=== PATIENT | female | born 1960 ===

== ENCOUNTER 2017-06-29 17:51 | Emergency (ER) | payer BC ==
[2017-06-29 17:52] VITALS: BMI 23.1
--- NOTE | 2017-06-29 20:32 | ED PDOC ---
Lower Extremity Pain/Injury Time Seen by Provider: 06/29/17 18:19 Chief Complaint (Nursing): Lower Extremity Problem/Injury Chief Complaint (Provider): Right calf pain History Per: Patient History/Exam Limitations: no limitations Onset/Duration Of Symptoms: Days, Persistent Current Symptoms Are (Timing): Still Present Additional History Per: Patient Additional Complaint(s): 56yo female, history of hypertension, presents with complaint of atraumatic pain to right zora for the past month. She reports the pain worsens after she walks 1.5 blocks. She denies any associated fever, numbness, shortness of breath , chest pain, rash. Past Medical History Reviewed: Historical Data, Nursing Documentation, Vital Signs - Medical History PMH: HTN, Hypercholesterolemia - Surgical History Surgical History: No Surg Hx - Family History Family History: States: No Known Family Hx - Social History Current smoker - smoking cessation education provided: Yes SMOKER/PACKS PER DAY:: 1 (for 30 years) - Allergies Allergies/Adverse Reactions: Allergies Allergy/AdvReac Type Severity Reaction Status Date / Time acetaminophen [From Tylenol] AdvReac SHORTNESS Verified 08/03/16 08:39 OF BREATH Review of Systems ROS Statement: Except As Marked, All Systems Reviewed And Found Negative Constitutional: Negative for: Fever, Chills Cardiovascular: Negative for: Chest Pain Respiratory: Negative for: Shortness of Breath Musculoskeletal: Positive for: Leg Pain (right calf pain) Skin: Negative for: Rash Neurological: Negative for: Weakness, Numbness Physical Exam - Reviewed Nursing Documentation Reviewed: Yes Vital Signs Reviewed: Yes - Physical Exam Appears: Positive for: Non-toxic Head Exam: Positive for: ATRAUMATIC, NORMAL INSPECTION, NORMOCEPHALIC Skin: Positive for: Warm (bilateral lower extremities warm to touch), Dry. Negative for: Pallor Eye Exam: Positive for: EOMI, PERRL Neck: Positive for: Supple Cardiovascular/Chest: Positive for: Regular Rate, Rhythm Respiratory: Positive for: Normal Breath Sounds. Negative for: Wheezing Pulses-Dorsalis Pedis (L): 2+ Pulses-Dorsalis Pedis (R): 2+ Extremity: Positive for: Normal ROM, Capillary Refill (< 2 seconds right lower extremity ). Negative for: Tenderness, Calf Tenderness (right calf), Deformity , Swelling Neurologic/Psych: Positive for: Alert, Oriented. Negative for: Motor/Sensory Deficits - Progress ED Course And Treament: Duplex RLE: negative for DVT. Medical Decision Making Medical Decision Making: Impression: Right leg pain Plan: -- US Doppler right lower extremity Reassess Scribe Attestation: Documented by Senia Owen acting as a scribe for SUDHAKAR Ortiz Provider Attestation: All medical record entries made by the Scribe were at my direction and personally dictated by me. I have reviewed the chart and agree that the record accurately reflects my personal performance of the history, physical exam, medical decision making, and the department course for this patient. I have also personally directed, reviewed, and agree with the discharge instructions and disposition. Disposition - Clinical Impression Clinical Impression: Leg pain - Patient ED Disposition Is Patient to be Admitted: No - Disposition Disposition: Routine/Home Disposition Time: 21:21 Condition: STABLE Instructions: Leg Pain (ED) Forms: [facility] (Bahamian) Print Language: SLOVAK
--- NOTE | 2017-06-30 09:35 | US ---
PROCEDURE: Right lower extremity venous duplex Doppler. HISTORY: pain COMPARISON: None available. TECHNIQUE: Common femoral, superficial femoral, popliteal and posterior tibial veins were evaluated. Flow was assessed with color Doppler, compressibility, assessment of phasic flow and augmentation response. FINDINGS: COMMON FEMORAL VEIN: Unremarkable. SUPERFICIAL FEMORAL VEIN: Unremarkable. POPLITEAL VEIN: Unremarkable. POSTERIOR TIBIAL VEIN: Unremarkable. OTHER FINDINGS: None. IMPRESSION: No evidence of deep venous thrombosis in the right lower extremity.
== END 2017-06-29 21:21 | disposition home or self-care (01) ==
LOC: H.ER 17:51
DX: M79.604 Pain in right leg (principal); E78.00 Pure hypercholesterolemia, unspecified; I10 Essential (primary) hypertension

== ENCOUNTER 2017-07-24 07:58 | Emergency (ER) | payer BC ==
[2017-07-24 07:59] VITALS: BMI 23.1
[2017-07-24 08:16] VITALS: O2SAT 100
--- NOTE | 2017-07-24 08:52 | ED PDOC ---
Syncope/Near Syncope/Dizziness Time Seen by Provider: 07/24/17 08:00 Chief Complaint (Nursing): Dizziness/Lightheaded Chief Complaint (Provider): Dizziness/Lightheaded History Per: Patient History/Exam Limitations: no limitations Onset/Duration Of Symptoms: Sudden Onset Current Symptoms Are (Timing): Still Present Additional Complaint(s): 56 year old female with medical history of hypertension and thyroid disease, presents to the emergency department with a complaint of dizziness for 3-4 minutes associated with spinning sensation and sweats status post coming off of bus prior to arrival. Denied any fever, chills, chest pain or shortness of breath. Patient stated she has been experiencing dizziness and blurry vision intermittently, but today, symptoms were severe. Patient also reported feeling better upon arrival with most symptoms resolved. PMD: Jeff Fabian MD Past Medical History Reviewed: Historical Data, Nursing Documentation, Vital Signs Vital Signs: Last Vital Signs Temp 96 F L 07/24/17 08:15 Pulse 69 07/24/17 08:15 Resp 17 07/24/17 08:15 BP 145/60 07/24/17 08:15 Pulse Ox 100 07/24/17 08:15 - Medical History PMH: HTN, Hypercholesterolemia - Surgical History Surgical History: No Surg Hx - Family History Family History: States: Unknown Family Hx - Social History Current smoker - smoking cessation education provided: Yes Alcohol: Occasional Drugs: Denies - Home Medications Home Medications: Ambulatory Orders Medication Instructions Recorded Meclizine [Meclizine*] 25 mg PO Q6 PRN #5 tab 07/24/17 - Allergies Allergies/Adverse Reactions: Allergies Allergy/AdvReac Type Severity Reaction Status Date / Time acetaminophen [From Tylenol] AdvReac SHORTNESS Verified 08/03/16 08:39 OF BREATH Review of Systems ROS Statement: Except As Marked, All Systems Reviewed And Found Negative Constitutional: Positive for: Sweats. Negative for: Fever, Chills Eyes: Positive for: Vision Change (blurry vision) Cardiovascular: Negative for: Chest Pain Respiratory: Negative for: Shortness of Breath Neurological: Positive for: Dizziness (with spins) Physical Exam - Reviewed Nursing Documentation Reviewed: Yes Vital Signs Reviewed: Yes - Physical Exam Appears: Positive for: Non-toxic, No Acute Distress Head Exam: Positive for: ATRAUMATIC, NORMAL INSPECTION, NORMOCEPHALIC Skin: Positive for: Normal Color Eye Exam: Positive for: Normal appearance, EOMI, PERRL. Negative for: Nystagmus ENT: Positive for: Normal ENT Inspection Neck: Positive for: Normal Cardiovascular/Chest: Positive for: Regular Rate, Rhythm, Chest Non Tender Respiratory: Positive for: Normal Breath Sounds. Negative for: Decreased Breath Sounds, Wheezing, Respiratory Distress Gastrointestinal/Abdominal: Positive for: Normal Exam, Soft. Negative for: Tenderness Extremity: Positive for: Normal ROM (bilateral) Neurologic/Psych: Positive for: Alert (x3), label pinker II-XII (intact), Oriented. Negative for: Motor/Sensory Deficits, Aphasia - Laboratory Results Result Diagrams: 07/24/17 09:00 07/24/17 09:00 - ECG O2 Sat by Pulse Oximetry: 100 (RA) Pulse Ox Interpretation: Normal Medical Decision Making Medical Decision Making: Initial Impression: Dizziness Initial Plan: * CMP * Troponin I * CBC ____ Time: 0828 --EKG: Left bundle brach block at 58 BPM. No prior EKG to compare. Time: 1030 --Labs: no significant abnormality. Time: 1233 --Re-evaluation: patient is still reporting dizziness. --Meclizine and CT head ordered. Time: 1350 --CT head FINDINGS: HEMORRHAGE: No intracranial hemorrhage. BRAIN: Normal lewis-white matter differentiation and density are appreciated throughout the cerebrum and cerebellum with the brainstem appearing unremarkable as well. There is no mass effect. There is no suspicious extra-axial fluid collection and the midline brain anatomy appears diffusely unremarkable. VENTRICLES: Unremarkable. No hydrocephalus. CALVARIUM: Unremarkable. PARANASAL SINUSES: Unremarkable as visualized. No significant inflammatory changes. MASTOID AIR CELLS: Unremarkable as visualized. No inflammatory changes. OTHER FINDINGS: None. IMPRESSION: Unremarkable unenhanced CT of the Head. CT or MRI are available for follow-up if clinically warranted. Time: 1441 --Upon provider reevaluation, patient is feeling better, stable gait, smptoms resolved w meclizine. pt is medically stable and requires no further treatment in the ED at this time. Patient will be discharged home with Rx for Meclizine 25mg. Counseling was provided and all questions were answered regarding diagnosis and need for follow up with PMD in 2 days. There is agreement to discharge plan. Return if symptoms persist or worsen. Clinical Impression: Dizziness; vertigo Scribe Attestation: Documented by Tamika Phillips, acting as a scribe for Lisbeth Browning MD. Provider Scribe Attestation: All medical record entries made by the Scribe were at my direction and personally dictated by me. I have reviewed the chart and agree that the record accurately reflects my personal performance of the history, physical exam, medical decision making, and the department course for this patient. I have also personally directed, reviewed, and agree with the discharge instructions and disposition. Disposition - Clinical Impression Clinical Impression: Dizziness, Vertigo - Patient ED Disposition Is Patient to be Admitted: No Counseled Patient/Family Regarding: Studies Performed, Diagnosis, Need For Followup, Rx Given - Disposition Referrals: [facility] [Outside] [facility] [Outside] Disposition: Routine/Home Disposition Time: 11:30 Condition: IMPROVED Additional Instructions: FOLLOW UP WITH YOUR PRIMARY DOCTOR IN 2 DAYS FOR REEVALUATION RETURN TO THE ED WITH ANY WORSENING OR CONCERNING SYMPTOMS Prescriptions: Meclizine [Meclizine*] 25 mg PO Q6 PRN #5 tab PRN Reason: Dizziness Instructions: Vertigo (a Type of Dizziness) Forms: [facility] (Malay)
[2017-07-24 09:08] LABS: BASO # 0.1 K/uL (0.0-0.2); BASO % 1.2 % (0.0-2.0); EOS # 0.2 K/uL (0.0-0.7); EOS % 3.1 % (0.0-4.0); HEMOGLOBIN 12.7 g/dL (12.0-16.0); LYMPH # 1.7 K/uL (1.0-4.3); LYMPH % 26.9 % (20.0-40.0); MEAN CELL VOLUME 96.4 fl (81.0-99.0); MEAN CORPUSCULAR HEMOGLOBIN 32.6 pg (27.0-31.0); MEAN CORPUSCULAR HGB CONC 33.8 g/dL (33.0-37.0); MEAN PLATELET VOLUME 9.4 fl (7.2-11.7); MONO # 0.4 K/uL (0.0-0.8); MONO % 6.3 % (0.0-10.0); NEUT # 3.9 K/uL (1.8-7.0); NEUT % 62.5 % (50.0-75.0); NRBC % 0.1 % (0.0-0.0); RBC 3.89 Mil/uL (3.80-5.20); RED CELL DISTRIBUTION WIDTH 13.8 % (11.5-14.5); WHITE BLOOD COUNT 6.2 K/uL (4.8-10.8)
[2017-07-24 09:22] LABS: ALB/GLOB RATIO 1.2 (1.0-2.1); ALBUMIN 3.8 g/dL (3.5-5.0); ALT/SGPT 35 U/L (9-52); AST/SGOT 22 U/L (14-36); BLOOD UREA NITROGEN 25 mg/dl (7-17); GFR AFRICAN-AMERICAN > 60; GFR NON-AFRICAN AMERICAN > 60
[2017-07-24 13:21] VITALS: RESP 18
--- NOTE | 2017-07-24 13:52 | CT ---
PROCEDURE: CT HEAD WITHOUT CONTRAST. HISTORY: headache COMPARISON: None available. TECHNIQUE: Axial computed tomography images were obtained through the head/brain without intravenous contrast. Radiation dose: Total exam DLP = 799.64 mGy-cm. This CT exam was performed using one or more of the following dose reduction techniques: Automated exposure control, adjustment of the mA and/or kV according to patient size, and/or use of iterative reconstruction technique. FINDINGS: HEMORRHAGE: No intracranial hemorrhage. BRAIN: Normal lewis-white matter differentiation and density are appreciated throughout the cerebrum and cerebellum with the brainstem appearing unremarkable as well. There is no mass effect. There is no suspicious extra-axial fluid collection and the midline brain anatomy appears diffusely unremarkable. VENTRICLES: Unremarkable. No hydrocephalus. CALVARIUM: Unremarkable. PARANASAL SINUSES: Unremarkable as visualized. No significant inflammatory changes. MASTOID AIR CELLS: Unremarkable as visualized. No inflammatory changes. OTHER FINDINGS: None. IMPRESSION: Unremarkable unenhanced CT of the Head. CT or MRI are available for follow-up if clinically warranted.
[2017-07-24 18:46] VITALS: BP 138/70; PULSE 70; TEMP 98
== END 2017-07-24 18:47 | disposition home or self-care (01) ==
LOC: H.ER 07:58
DX: R42 Dizziness and giddiness (principal); I10 Essential (primary) hypertension; F17.210 Nicotine dependence, cigarettes, uncomplicated

== ENCOUNTER 2017-11-29 14:34 | Observation (INO) | payer BC ==
[2017-11-29 14:34] VITALS: BMI 23.1
--- NOTE | 2017-11-29 16:05 | ED PDOC ---
HPI: General Adult Time Seen by Provider: 11/29/17 14:49 Chief Complaint (Nursing): Weakness/Neurological Deficit Chief Complaint (Provider): Left Arm Numbness History Per: Patient History/Exam Limitations: no limitations Onset/Duration Of Symptoms: Hrs (x1) Current Symptoms Are (Timing): Still Present Additional Complaint(s): 57 y/o female with a PMHx of HTN and hypothyroidism presenting for evaluation of left arm numbness onset 1 hour prior to arrival. 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 She says a coworker tried to massage it out, but it didnt work and she became anxious and came to the ER to get it checked out to make sure she didnt have a heart problem. She denies any chest pain, shortness of breath , dizziness, headache, nausea, vomiting, or sweats. Patient also reports she is supposed to have a neck MRI which she has not had yet. PCP: Dr. Jeff Fabian Past Medical History Reviewed: Historical Data, Nursing Documentation, Vital Signs Vital Signs: Last Vital Signs Temp 98 F 11/29/17 14:40 Pulse 68 11/29/17 14:40 Resp 16 11/29/17 14:40 BP Pulse Ox 98 11/29/17 16:13 - Medical History PMH: HTN, Hypercholesterolemia, Hypothyroidism - Surgical History Surgical History: No Surg Hx - Family History Family History: States: Unknown Family Hx - Social History Current smoker - smoking cessation education provided: Yes (Pack per day for 30 years) Alcohol: Social - Home Medications Home Medications: Ambulatory Orders Medication Instructions Recorded Meclizine [Meclizine*] 25 mg PO Q6 PRN #5 tab 07/24/17 - Allergies Allergies/Adverse Reactions: Allergies Allergy/AdvReac Type Severity Reaction Status Date / Time acetaminophen [From Tylenol] AdvReac SHORTNESS Verified 08/03/16 08:39 OF BREATH Review of Systems ROS Statement: Except As Marked, All Systems Reviewed And Found Negative Constitutional: Negative for: Sweats Cardiovascular: Negative for: Chest Pain Respiratory: Negative for: Shortness of Breath Gastrointestinal: Negative for: Nausea, Vomiting Neurological: Positive for: Numbness (left arm). Negative for: Headache, Dizziness Physical Exam - Reviewed Nursing Documentation Reviewed: Yes Vital Signs Reviewed: Yes - Physical Exam Appears: Positive for: Non-toxic, No Acute Distress Head Exam: Positive for: ATRAUMATIC, NORMAL INSPECTION, NORMOCEPHALIC Skin: Positive for: Normal Color, Warm, Dry. Negative for: Rash Eye Exam: Positive for: EOMI, Normal appearance, PERRL ENT: Positive for: Normal ENT Inspection Neck: Positive for: Normal, Painless ROM, Supple Cardiovascular/Chest: Positive for: Regular Rate, Rhythm. Negative for: Murmur Respiratory: Positive for: Normal Breath Sounds. Negative for: Respiratory Distress Gastrointestinal/Abdominal: Positive for: Normal Exam, Soft. Negative for: Tenderness Back: Positive for: Normal Inspection. Negative for: L CVA Tenderness, R CVA Tenderness, Vertebral Tenderness Extremity: Positive for: Normal ROM. Negative for: Pedal Edema, Deformity Neurologic/Psych: Positive for: Alert, Oriented. Negative for: Motor/Sensory Deficits - Laboratory Results Result Diagrams: 11/29/17 16:01 11/29/17 16:01 - ECG O2 Sat by Pulse Oximetry: 98 (RA) Pulse Ox Interpretation: Normal Medical Decision Making Medical Decision Makin:56 Impression: Left arm numbness. Possible peripheral neuropathy Plan: -EKG -BMP -Troponin I -CBC w/ differential -Continuous child monitor -Reevaluation Scribe Attestation: Documented by Seamus Pink, acting as a scribe for Samantha Norman MD. Provider Scribe Attestation: All medical record entries made by the Scribe were at my direction and personally dictated by me. I have reviewed the chart and agree that the record accurately reflects my personal performance of the history, physical exam, medical decision making, and the department course for this patient. I have also personally directed, reviewed, and agree with the discharge instructions and disposition. 4.20 case d/w Dr. De Oliveira. LBBB on EKG. He cannot get to his records. Patient has h/o of hypertension, heavy smoking. she is 57yo. Will admit for observation. Disposition - Clinical Impression Clinical Impression: Left arm numbness - Patient ED Disposition Is Patient to be Admitted: No Doctor Will See Patient In The: Office Counseled Patient/Family Regarding: Diagnosis, Need For Followup - Disposition Disposition: Transfer of Care Disposition Time: 16:20 Condition: STABLE Forms: [facility] (Swedish) - POA Present On Arrival: None
[2017-11-29 16:16] LABS: BASO % 0.7 % (0.0-2.0); EOS # 0.2 K/uL (0.0-0.7); EOS % 2.9 % (0.0-4.0); HEMOGLOBIN 12.5 g/dL (12.0-16.0); LYMPH % 29.8 % (20.0-40.0); MEAN CELL VOLUME 94.9 fl (81.0-99.0); MEAN CORPUSCULAR HGB CONC 33.8 g/dL (33.0-37.0); MEAN PLATELET VOLUME 9.8 fl (7.2-11.7); MONO # 0.4 K/uL (0.0-0.8); MONO % 5.8 % (0.0-10.0); NEUT # 4.1 K/uL (1.8-7.0); NEUT % 60.8 % (50.0-75.0); RBC 3.89 Mil/uL (3.80-5.20); RED CELL DISTRIBUTION WIDTH 14.4 % (11.5-14.5); WHITE BLOOD COUNT 6.8 K/uL (4.8-10.8)
[2017-11-29 16:25] LABS: BLOOD UREA NITROGEN 19 mg/dl (7-17); CALCIUM 9.1 mg/dL (8.4-10.2); GFR AFRICAN-AMERICAN > 60; GFR NON-AFRICAN AMERICAN > 60
--- NOTE | 2017-11-29 19:13 | CP.PCM.PN ---
Subjective - Date & Time of Evaluation Date of Evaluation: 11/29/17 Time of Evaluation: 22:22 - Subjective Subjective: 57 yo with hx HTN Thyroid dx Hyperlipidemia presents to the ER with L arm parasthesia assoc with elevated BP Objective - Vital Signs/Intake and Output Vital Signs (last 24 hours): Temp Pulse Resp BP Pulse Ox 98.2 F 65 18 134/72 98 11/29/17 18:55 11/29/17 18:55 11/29/17 18:55 11/29/17 18:55 11/29/17 18:42 - Labs Labs: 11/29/17 16:01 11/29/17 16:01 - Respiratory Exam Respiratory Exam: NORMAL BREATHING PATTERN - Cardiovascular Exam Cardiovascular Exam: REGULAR RHYTHM - GI/Abdominal Exam GI & Abdominal Exam: Normal Bowel Sounds Assessment and Plan - Assessment and Plan (Free Text) Assessment: L arm numbness/ pain with uncontrolled HTN EKG LBBB CE D/W cardiology Hx cervical radiculopathy Hx Thyroid dx Hyperlipidemia
[2017-11-30] MEDS ORDERED: Levothyroxine 50 MCG TAB PO SCH (06:30)
--- NOTE | 2017-11-30 10:24 | US ---
Date of service: 11/29/2017 PROCEDURE: Right lower extremity venous duplex Doppler. HISTORY: calf pain COMPARISON: Comparison made with prior right lower extremity venous Doppler exam dated 06/29/2017. TECHNIQUE: Common femoral, superficial femoral, popliteal and posterior tibial veins were evaluated. Flow was assessed with color Doppler, compressibility, assessment of phasic flow and augmentation response. FINDINGS: COMMON FEMORAL VEIN: Unremarkable. SUPERFICIAL FEMORAL VEIN: Unremarkable. POPLITEAL VEIN: Unremarkable. POSTERIOR TIBIAL VEIN: Unremarkable. OTHER FINDINGS: None. IMPRESSION: No evidence of deep venous thrombosis in the right lower extremity.
--- NOTE | 2017-11-30 14:46 | US ---
Date of service: 11/30/2017 PROCEDURE: Duplex ultrasound of the carotid and vertebral arteries. HISTORY: uncontrolled htn COMPARISON: None available. TECHNIQUE: Grayscale and duplex Doppler evaluation of the cervical carotid and vertebral arteries were performed. The common carotid, carotid bifurcations and cervical ICA and proximal ECA were evaluated. The vertebral arteries were evaluated for gross patency and direction. FINDINGS: RIGHT CAROTID ARTERIES: Common Carotid Artery: Intimal thickening is present Maximal flow velocity of 108.9 cm/s. Carotid Bifurcation: Heterogeneous plaque formation. Internal Carotid Artery:Heterogeneous plaque formation. Maximal flow velocity of 114.8 cm/s. External Carotid Artery (proximal branches): Normal. Maximal flow velocity of 236.6 cm/s. ICA/CCA Ratio: 1.1 LEFT CAROTID ARTERIES: Common Carotid Artery: Intimal thickening is present Maximal flow velocity of 137.8 cm/s. Carotid Bifurcation: Heterogeneous plaque formation. Internal Carotid Artery:Heterogeneous plaque formation. Maximal flow velocity of 116.8 cm/s. External Carotid Artery (proximal branches): Normal. Maximal flow velocity of 260.0 cm/s. ICA/CCA Ratio: 1.3 VERTEBRAL ARTERIES: Right Vertebral Artery: Patent. Antegrade flow. Left Vertebral Artery: Patent. Antegrade flow. OTHER FINDINGS: Enlarged lymph nodes adjacent to the left external carotid artery 2.3 x 0.6 cm. Morphologically unremarkable. Additional smaller morphologically unremarkable lymph node 1.5 x 0.7 cm identified on left. IMPRESSION: Right ICA degree of stenosis: Less than 50% Left ICA degree of stenosis: Less than 50% Elevated peak systolic velocities in both external carotid arteries. Morphologically unremarkable lymph nodes including 1 enlarged lymph node in the neck on the left. Reference Internal Carotid Artery (ICA) Peak Systolic Velocity (PSV) for above: 1. Less than 50% stenosis less than 125 cm/s peak systolic velocity 2. 50-69% stenosis 125-230cm/s peak systolic velocity 3. Greater than 70% but less than near occlusion greater than 230 cm/s peak systolic velocity
--- NOTE | 2017-11-30 15:17 | CT ---
Date of service: 11/30/2017 PROCEDURE: CT HEAD WITHOUT CONTRAST. HISTORY: paresthesia COMPARISON: 07/24/2017. TECHNIQUE: Axial computed tomography images were obtained through the head/brain without intravenous contrast. Coronal and sagittal reconstructed images. Radiation dose: Total exam DLP = 609.47 mGy-cm. This CT exam was performed using one or more of the following dose reduction techniques: Automated exposure control, adjustment of the mA and/or kV according to patient size, and/or use of iterative reconstruction technique. FINDINGS: HEMORRHAGE: No intracranial hemorrhage. BRAIN: No mass effect or edema. No atrophy or chronic microvascular ischemic changes. VENTRICLES: Unremarkable. No hydrocephalus. CALVARIUM: Unremarkable. PARANASAL SINUSES: Unremarkable as visualized. No significant inflammatory changes. MASTOID AIR CELLS: Unremarkable as visualized. No inflammatory changes. OTHER FINDINGS: None. IMPRESSION: No acute intracranial abnormalities. No significant findings to account for the clinical presentation. No significant interval change compared to the prior examination(s).
--- NOTE | 2017-11-30 16:04 | CT ---
Date of service: 11/30/2017 PROCEDURE: CT Cervical Spine without contrast HISTORY: Cervical radiculopathy COMPARISON: None available. TECHNIQUE: Axial computed tomography images were obtained of the cervical spine without the use of intravenous contrast. Coronal and sagittal reformatted images were created and reviewed. Radiation dose: Total exam DLP = 364.0 mGy-cm. This CT exam was performed using one or more of the following dose reduction techniques: Automated exposure control, adjustment of the mA and/or kV according to patient size, and/or use of iterative reconstruction technique. FINDINGS: VERTEBRAE: No acute compression fractures no retropulsed fragments. Vertebral bodies exhibit normal stature. There is slight straightening of the normal cervical lordosis which could be secondary to patient positioning gantry however vertebral bodies otherwise exhibit normal alignment. Facets normally aligned. Mild degenerative spondylosis DISCS/SPINAL CANAL/NEURAL FORAMINA: At the C6-C7 level. There is slight the anterior disc space narrowing with small anterior marginal osteophyte formation. The remaining disc space height is relatively maintained. Small broad-based bulge of the posterior annulus flattens the ventral surface of the thecal sac. Central canal is slightly narrowed. Mild degenerative squaring of the uncovertebral joints. Exit foramina appear narrowed of bilaterally left greater than right. At the C5-C6 level, there is very minimal anterior osteophyte formation. Remaining disc space heights maintained. Small focal central bilateral (left slightly larger than right) disc protrusion indents the ventral surface of the thecal sac and spinal cord more so on the left side. Central canal is also slightly narrowed. Mild degenerative squaring of the uncovertebral joints. The exit foramina also appear narrowed. C3-C4 level, there is the adequate disc height. Small central and bilateral disc protrusion also indents the ventral surface of the thecal sac and cord. Central canal is slightly narrowed. The facets are hypertrophic with minimal degenerative squaring of the uncovertebral joints. Exit foramina are marginal to minimally narrowed bilaterally. C4-C5 level, At the C2-C3 level, there is adequate disc height. Minor degenerative squaring of the uncovertebral joints. Facets are hypertrophic right more so than left. Minimal broad-based bulge of the posterior annulus is present. Central canal appears marginal to minimally narrowed. Exit foramina appear marginal to minimally narrowed on the right and marginal to adequate on the left. PARASPINAL SOFT TISSUES: Unremarkable. OTHER FINDINGS: There appears to be some mild paraseptal emphysematous changes in the right and to a much lesser degree left lung apex. IMPRESSION: No acute fractures. Mild multilevel degenerative spondylosis as described.
--- NOTE | 2017-11-30 16:34 | CARD ---
APPROVED REPORT Date of service: 11/29/2017 EKG Measurement Heart [id number] <Conclusion> Sinus bradycardia Left bundle branch block Abnormal ECG
--- NOTE | 2017-11-30 18:20 | CP.PCM.CON ---
History of Present Illness - History of Present Illness History of Present Illness: 57 yo female with hypertension, admitted with left arm pain. R/o [place]. Neuro w/u in progress. EKG LBBB. ECHO no regional wma. Bp mildly elevated Past Patient History - Past Social History Smoking Status: Heavy Smoker > 10 Cigarettes Daily - CARDIAC Hx Cardiac Disorders: Yes - ENDOCRINE/METABOLIC Hx Endocrine Disorders: Yes - MUSCULOSKELETAL/RHEUMATOLOGICAL Hx Falls: No - PSYCHIATRIC Hx Substance Use: No - SURGICAL HISTORY Hx Surgeries: No - ANESTHESIA Hx Anesthesia: No Meds Allergies/Adverse Reactions: Allergies Allergy/AdvReac Type Severity Reaction Status Date / Time acetaminophen [From Tylenol] AdvReac SHORTNESS Verified 08/03/16 08:39 OF BREATH - Medications Medications: Current Medications Aspirin (Aspirin Chewable) 81 mg PO STAT STA Stop: 11/30/17 18:16 Aspirin (Ecotrin) 81 mg PO DAILY [facility] Atorvastatin Calcium (Lipitor) 10 mg PO DAILY [facility] Last Admin: 11/30/17 09:13 Dose: 10 mg Levothyroxine Sodium (Synthroid) 50 mcg PO DAILY@0630 [facility] Last Admin: 11/30/17 06:06 Dose: 50 mcg Lisinopril (Zestril) 10 mg PO DAILY [facility] Last Admin: 11/30/17 09:13 Dose: 10 mg Physical Exam - Constitutional Appears: Well - Eye Exam Eye Exam: Normal appearance - Neck Exam Neck exam: Positive for: Normal Inspection - Respiratory Exam Respiratory Exam: Clear to Auscultation Bilateral - Cardiovascular Exam Cardiovascular Exam: REGULAR RHYTHM - GI/Abdominal Exam GI & Abdominal Exam: Normal Bowel Sounds - Extremities Exam Extremities exam: Positive for: normal inspection Results - Vital Signs Recent Vital Signs: Last Vital Signs Temp 98.4 F 11/30/17 16:21 Pulse 64 11/30/17 16:21 Resp 19 11/30/17 16:21 BP 174/76 H 11/30/17 16:21 Pulse Ox 94 L 11/30/17 16:21 - Labs Result Diagrams: 11/29/17 16:01 11/29/17 16:01 Labs: Laboratory Results - last 24 hr 11/30/17 11/30/17 00:10 08:00 Troponin I < 0.0120 < 0.0120 Assessment & Plan - Assessment and Plan (Free Text) Assessment: No acute cardiac etiology arm pain. No unstable cardiac symptoms Would increase Lisinopril 20mg qd f/u bp as outpt No further testing indicated Can be discharged as per cardiology standpoint
[2017-11-30 20:11] VITALS: BP 119/67; PULSE 71; RESP 17; TEMP 97.8; O2SAT 98
--- NOTE | 2017-11-30 21:28 | CP.PCM.HP ---
History of Present Illness - History of Present Illness History of Present Illness: 57 yo admitted with L arm numbness Present on Admission - Present on Admission Any Indicators Present on Admission: No Past Patient History - Past Social History Smoking Status: Heavy Smoker > 10 Cigarettes Daily - CARDIAC Hx Cardiac Disorders: Yes - ENDOCRINE/METABOLIC Hx Endocrine Disorders: Yes - MUSCULOSKELETAL/RHEUMATOLOGICAL Hx Falls: No - PSYCHIATRIC Hx Substance Use: No - SURGICAL HISTORY Hx Surgeries: No - ANESTHESIA Hx Anesthesia: No Meds Home Medications: Home Medication List Medication Instructions Recorded Confirmed Type Aspirin [Ecotrin] 81 mg PO DAILY tabec 11/30/17 Rx Allergies/Adverse Reactions: Allergies Allergy/AdvReac Type Severity Reaction Status Date / Time acetaminophen [From Tylenol] AdvReac SHORTNESS Verified 08/03/16 08:39 OF BREATH Physical Exam - Respiratory Exam Respiratory Exam: NORMAL BREATHING PATTERN - Cardiovascular Exam Cardiovascular Exam: REGULAR RHYTHM - GI/Abdominal Exam GI & Abdominal Exam: Normal Bowel Sounds Results - Vital Signs Recent Vital Signs: Last Vital Signs Temp 97.8 F 11/30/17 20:10 Pulse 71 11/30/17 20:10 Resp 17 11/30/17 20:10 BP 119/67 11/30/17 20:10 Pulse Ox 98 11/30/17 20:10 - Labs Result Diagrams: 11/29/17 16:01 11/29/17 16:01 Labs: Laboratory Results - last 24 hr 11/30/17 11/30/17 00:10 08:00 Troponin I < 0.0120 < 0.0120 Assessment & Plan - Assessment and Plan (Free Text) Assessment: L arm numbness/ pain with uncontrolled HTN EKG LBBB CE D/W cardiology Hx cervical radiculopathy Hx Thyroid dx Hyperlipidemia - Date & Time Date: 11/30/17 Time: 22:22
--- NOTE | 2017-12-01 05:03 | CON ---
DATE: 11/29/2017 NEUROLOGY CONSULTATION REASON FOR CONSULTATION: Numbness in the left side. HISTORY OF PRESENTING ILLNESS: The patient is a 57-year-old female who has been asked for evaluation of tingling and numbness on the left side. The patient said she was at work yesterday, and she started experiencing tingling, which started in the left hand and went up to involving the whole left arm. She was also experiencing the somewhat similar symptoms in the left lower extremity. The symptoms lasted for about 40 minutes to an hour and then slowly started to get better. She did not have any weakness in her arms or legs. Had no headaches associated with this. Denies having any neck pain. At the moment, she feels fine. REVIEW OF SYSTEMS: Denies any headache, dizziness, chest pain, shortness of breath, abdominal pain, constipation, diarrhea, dysuria, pyuria, cough, or sputum production. PAST MEDICAL HISTORY: Includes hypertension and hypercholesterolemia. MEDICATIONS: At home include Zestril, Lipitor 10 mg daily, and levothyroxine. SOCIAL HISTORY: She does smoke cigarettes. Denies use of alcohol or illicit drugs. FAMILY HISTORY: Reviewed and noncontributory to the case. PHYSICAL EXAMINATION: GENERAL: The patient is a middle-aged pleasant female, lying in the bed, in no acute distress. VITAL SIGNS: Blood pressure is 174/76, heart rate is 64 per minute, breathing at the rate of 16 per minute; and temperature is 98.4 degrees Fahrenheit. HEENT EXAM: Normocephalic and atraumatic. NECK: Supple. There are no carotid bruits. LUNGS: Clear. CARDIOVASCULAR EXAM: S1 and S2 audible. No murmurs. ABDOMEN: Soft, nontender. Bowel sounds are present. NEUROLOGIC EXAMINATION: Mental status: The patient is awake, alert, oriented to time, place, and person. Speech is fluent. Naming and repetition are normal. Memory and cognition are intact. Cranial nerve examination: Pupils are 4 mm, bilaterally reactive to light. Visual morales are full. Extraocular movements are intact. There is no facial asymmetry. Palate is upgoing bilaterally and tongue is midline. Motor examination: Tone is normal. Power is 5/5 bilaterally in all extremities. Reflexes are 2+ and symmetrical. Plantars are downgoing bilaterally. Cerebellar examination: [id number] shows no dysmetria. Sensory examination: Intact to soft touch and pinprick. Gait is narrow based. LABORATORY DATA: Labs reviewed, show WBC of 6.8, hemoglobin 12.5, hematocrit 36.9, and platelets of 175. Sodium is 140, potassium 4.1, chloride 104, carbon dioxide 26, BUN of 19, creatinine 0.9, and glucose of 88. The patient had a CT scan of the head done, which shows no acute intracranial abnormality. The patient also had a carotid Doppler study done, which shows no significant stenosis. IMPRESSION: Status post numbness and tingling sensation in the left side including left upper and lower extremities. This is likely secondary to transient ischemic attack. RECOMMENDATIONS: 1. The patient will have an MRI of the brain without contrast; however, the patient is very claustrophobic and does not want to have it done. 2. The patient to be started on aspirin 81 mg once a day. 3. We will try to obtain the MRI of the brain as an open MRI as outpatient. 4. The patient is at baseline neurologic status at present. 5. The patient is to continue taking statin. 6. The patient may be discharged with outpatient followup. Thank you for the opportunity to participate in the care of this patient. Zeenat Seals MD
== END 2017-11-30 20:00 | disposition home or self-care (01) ==
LOC: H.ER 14:34 → H.ERHOLD 17:07 → H.TEL 19:02
PROVIDERS: ADMIT Family Medicine Geriatric Medicine; ATTEND Family Medicine Geriatric Medicine
DX: R20.0 Anesthesia of skin (principal); M79.602 Pain in left arm; E03.9 Hypothyroidism, unspecified; I10 Essential (primary) hypertension; E78.00 Pure hypercholesterolemia, unspecified; F17.210 Nicotine dependence, cigarettes, uncomplicated; E78.5 Hyperlipidemia, unspecified; I44.7 Left bundle-branch block, unspecified; F40.240 Claustrophobia; M54.12 Radiculopathy, cervical region
CPT/HCPCS: 36415; 70450; 72125; 80048; 82948; 84484; 85025; 93005; 93306; 93880; 93971; 99285; G0378